=== PATIENT | female | born 1985 | race Native Hawaiian/Other Pacific Islander ===

== ENCOUNTER 2021-08-04 09:55 | Emergency (ER) | payer MEDICAID ==
[2021-08-04] MEDS ORDERED: ONDANSETRON 4 MG/2 ML INJ IV ONE ×2 (11:06→13:15)
[2021-08-04] MEDS ORDERED: SODIUM CHLORIDE 0.9% 1000 ML 1,000 ML IV ONE (11:06)
[2021-08-04] MEDS ORDERED: MORPHINE 2 MG/1 ML INJ IV ONE (11:07)
--- NOTE | 2021-08-04 11:33 | Emergency Department Report ---
ED Abdominal Pain HPI - General Chief Complaint: Abdominal Pain Stated Complaint: NOT FEELING WELL Time Seen by Provider: 08/04/21 10:59 Source: patient Mode of arrival: Ambulatory Limitations: No Limitations - History of Present Illness Initial Comments: 36-year-old female presents to the ER today with complaints of diffuse lower abdominal pain. Patient states that the pain started yesterday. She reports nausea, and she has been vomiting. She denies any diarrhea. He states that her last bowel movement was today and normal. She denies any UTI symptoms or any abnormal vaginal symptoms. She states that her last menstrual cycle was June 15, 2021. She did take one home test and it was negative. She is not currently on any control. She has not had any abdominal surgeries in the past. MD Complaint: abdominal pain -: days(s) (1) Severity scale (0 -10): 5 - Related Data Previous Rx's Medication Instructions Recorded Last Taken Type Ibuprofen [Motrin 600 MG tab] 600 mg PO Q8H PRN #30 tablet 07/23/16 Unknown Rx Multivitamin with Iron 1 each PO DAILY #30 tablet 07/23/16 Unknown Rx [Multivitamins with Iron] Ondansetron [Zofran Odt] 4 mg PO Q8HR PRN #15 tab.rapdis 08/04/21 Unknown Rx Vit-Fe Fumar-FA [ 1 tab PO QDAY #30 08/04/21 Unknown Rx Vitamin] Allergies Allergy/AdvReac Type Severity Reaction Status Date / Time No Known Allergies Allergy Verified 09/25/15 13:57 ED Review of Systems ROS: Stated complaint: NOT FEELING WELL Other details as noted in HPI Comment: All other systems reviewed and negative Constitutional: denies: chills, fever Eyes: denies: eye pain, eye discharge, vision change ENT: denies: ear pain, throat pain, dental pain, hearing loss, epistaxis, congestion Respiratory: denies: cough, shortness of breath, SOB with exertion, SOB at rest, wheezing Cardiovascular: denies: chest pain, palpitations, edema, syncope, paroxysmal nocturnal dyspnea Gastrointestinal: abdominal pain, nausea, vomiting. denies: diarrhea, constipation, hematemesis, melena, hematochezia Genitourinary: denies: urgency, dysuria, frequency, hematuria, discharge, abnormal menses, dyspareunia Musculoskeletal: denies: back pain, joint swelling, arthralgia, myalgia Skin: denies: rash, lesions, change in color, change in hair/nails, pruritus Neurological: denies: headache, weakness, numbness, paresthesias, confusion, abnormal gait, vertigo Psychiatric: denies: anxiety, depression, auditory hallucinations, visual hallucinations, homicidal thoughts, suicidal thoughts Hematological/Lymphatic: denies: easy bleeding, easy bruising, swollen glands ED Past Medical Hx - Past Medical History Hx Hypertension: No Hx Congestive Heart Failure: No Hx Diabetes: No Hx Deep Vein Thrombosis: No Hx Renal Disease: No Hx Sickle Cell Disease: No Hx Seizures: No Hx Asthma: Yes Hx COPD: No Hx HIV: No - Social History Smoking Status: Never Smoker - Medications Home Medications: Home Medications Medication Instructions Recorded Confirmed Last Taken Type Ibuprofen [Motrin 600 MG tab] 600 mg PO Q8H PRN #30 tablet 07/23/16 Unknown Rx Multivitamin with Iron 1 each PO DAILY #30 tablet 07/23/16 Unknown Rx [Multivitamins with Iron] Ondansetron [Zofran Odt] 4 mg PO Q8HR PRN #15 tab.rapdis 08/04/21 Unknown Rx Vit-Fe Fumar-FA [ 1 tab PO QDAY #30 08/04/21 Unknown Rx Vitamin] ED Physical Exam - General Limitations: No Limitations ED Course Vital Signs 08/04/21 08/04/21 10:07 10:16 Temperature 98.4 F 98.4 F Pulse Rate 71 79 Respiratory 18 17 Rate Blood Pressure 106/54 112/97 [Left] O2 Sat by Pulse 99 99 Oximetry ED Medical Decision Making - Lab Data Result diagrams: 08/04/21 11:34 08/04/21 12:59 - Radiology Data Radiology results: report reviewed Patient: DIANA RIVERA MR#: [id number] : 1985 Acct:[id number] Age/Sex: 36 / F ADM Date: 08/04/21 Loc: ED Attending Dr: Ordering Physician: ANNABEL MAK Date of Service: 08/04/21 Procedure(s): US OB transvaginal Accession Number(s): [id number] cc: ANNABEL MAK ULTRASOUND OBSTETRIC INDICATION / CLINICAL INFORMATION: +preg;[facility] 06/2021. Clinical Gestational Age (GA) in weeks, days: 7, 2 TECHNIQUE: Transvaginal. COMPARISON: None available. FINDINGS: GESTATIONAL SAC: Well-defined oval shape and intrauterine in location. YOLK SAC: No significant abnormality. EMBRYO/FETUS: No significant abnormality. - [place]-Rump Length = 0.4 cm = 6, 1 weeks, days - Heart Rate, beats per minute (if present) = 112 ADNEXA: No significant abnormality. FREE FLUID: None. ADDITIONAL FINDINGS: None. IMPRESSION: 1. Single, living intrauterine with estimated sonographic age of 6, 1 weeks, days. heart tones noted at 112 bpm Signer Name: Zack Hatch DO Signed: 08/04/2021 12:54 PM Workstation Name: [id number] Transcribed By: TAINA Dictated By: ZACK HATCH DO Electronically Authenticated By: ZACK HATCH DO Signed Date/Time: 08/04/21 1254 DD/ 1253 TD/TT: Patient: DIANA RIVERA MR#: [id number] : 1985 Acct:[id number] Age/Sex: 36 / F ADM Date: 08/04/21 Loc: ED Attending Dr: Ordering Physician: ANNABEL MAK Date of Service: 08/04/21 Procedure(s): US abdomen limited Accession Number(s): [id number] cc: ANNABEL MAK ULTRASOUND ABDOMEN, LIMITED (RIGHT UPPER QUADRANT) INDICATION / CLINICAL INFORMATION: RUQ abd pain. COMPARISON: None available. FINDINGS: PANCREAS: Visualized portion shows no significant abnormality. LIVER: No significant abnormality. The portal vein demonstrates normal hepatopedal flow. GALLBLADDER: Cholelithiasis. BILE DUCTS: No significant abnormality. Common bile duct measures 2 mm. FREE FLUID: None. ADDITIONAL FINDINGS: None. IMPRESSION: 1. Cholelithiasis without acute cholecystitis. Signer Name: Zack Hatch DO Signed: 08/04/2021 12:52 PM Workstation Name: [id number] Transcribed By: TAINA Dictated By: ZACK HATCH DO Electronically Authenticated By: ZACK HATCH DO Signed Date/Time: 08/04/21 1252 DD/ 1251 TD/TT: - Medical Decision Making Work-up reviewed, --patient was found to be . Remainder of the labs unremarkable. Her OB ultrasound shows that she is 6 weeks and 1 day single IUP with heart tones of 112, and her gallbladder ultrasound shows cholelithiasis without acute cholecystitis. Patient currently resting comfortably in recliner. She is not in any significant distress. She is not toxic or ill-appearing. No active vomiting during stay. Discussed all results with patient. Informed patient she will need to follow-up with [facility] to start care. She also be given referral information to general surgery for further evaluation of her gallstones but in the meantime gallbladder eating plan was discussed with patient. Her vital signs are stable. At this time there is no indication for any additional testing, admission or emergent specialist consult. Patient expressed understanding of all instructions and agree with plan. Patient stable at time of discharge. Critical care attestation.: If time is entered above; I have spent that time in minutes in the direct care of this critically ill patient, excluding procedure time. ED Disposition Clinical Impression: 6 weeks gestation of , Cholelithiasis Disposition: HOME / SELF CARE / HOMELESS Is pt being admited?: No Does the pt Need Aspirin: No Condition: Stable Instructions: Cholelithiasis, Gallbladder Eating Plan, Abdominal Pain During , Abdominal Pain (ED) Additional Instructions: Your OB ultrasound today shows that you are 6 weeks and 1 day . Your gallbladder ultrasound also shows that you have gallstones. You will need to follow-up with the general surgery for further evaluation and treatment of your gallstone. In the meantime you will need to adjust your diet and I recommend that you follow the gallbladder eating plan listed on your discharge instructions. I recommend following up with [facility] for care, in the meantime you can start [id number] vitamins and take Tylenol for pain as needed. Take the Zofran as prescribed to help with nausea and vomiting. Return to the ER if at any point your symptoms worsens in any way. Prescriptions: Vit-Fe Fumar-FA [ Vitamin] 1 tab PO QDAY #30 Ondansetron [Zofran Odt] 4 mg PO Q8HR PRN #15 tab.rapdis PRN Reason: Vomiting Referrals: MANUEL EM DO [Staff Physician] - 3-5 Days [facility] [Provider Group] - 3-5 Days [facility] [Provider Group] - 3-5 Days Forms: Work/School Release Form(ED) Time of Disposition: 14:12
[2021-08-04 11:51] LABS: Basophils # (Auto) 0.1 K/mm3 (0.0-0.1); Basophils % (Auto) 0.7 % (0.0-1.8); Eosinophils # (Auto) 0.1 K/mm3 (0.0-0.4); Eosinophils % (Auto) 1.9 % (0.0-4.3); Hematocrit 39.8 % (30.3-42.9); Lymphocytes # (Auto) 2.6 K/mm3 (1.2-5.4); Mean Corpuscular HGB Conc 33 % (30-34); Mean Corpuscular Volume 83 fl (79-97); Monocytes # (Auto) 0.5 K/mm3 (0.0-0.8); Monocytes % (Auto) 6.3 % (0.0-7.3); Platelet Count 375 K/mm3 (140-440); Red Blood Count 4.79 M/mm3 (3.65-5.03); Red Cell Distribution Width 13.8 % (13.2-15.2)
--- NOTE | 2021-08-04 12:57 | Ultrasound Report ---
ULTRASOUND ABDOMEN, LIMITED (RIGHT UPPER QUADRANT) INDICATION / CLINICAL INFORMATION: RUQ abd pain. COMPARISON: None available. FINDINGS: PANCREAS: Visualized portion shows no significant abnormality. LIVER: No significant abnormality. The portal vein demonstrates normal hepatopedal flow. GALLBLADDER: Cholelithiasis. BILE DUCTS: No significant abnormality. Common bile duct measures 2 mm. FREE FLUID: None. ADDITIONAL FINDINGS: None. IMPRESSION: 1. Cholelithiasis without acute cholecystitis. Signer Name: Zack Marte DO Signed: 08/04/2021 12:52 PM Workstation Name: [id number]
--- NOTE | 2021-08-04 12:58 | Ultrasound Report ---
ULTRASOUND OBSTETRIC INDICATION / CLINICAL INFORMATION: +preg;[facility] 06/2021. Clinical Gestational Age (GA) in weeks, days: 7, 2 TECHNIQUE: Transvaginal. COMPARISON: None available. FINDINGS: GESTATIONAL SAC: Well-defined oval shape and intrauterine in location. YOLK SAC: No significant abnormality. EMBRYO/FETUS: No significant abnormality. - [place]-Rump Length = 0.4 cm = 6, 1 weeks, days - Heart Rate, beats per minute (if present) = 112 ADNEXA: No significant abnormality. FREE FLUID: None. ADDITIONAL FINDINGS: None. IMPRESSION: 1. Single, living intrauterine with estimated sonographic age of 6, 1 weeks, days. h eart tones noted at 112 bpm Signer Name: Zack Marte DO Signed: 08/04/2021 12:54 PM Workstation Name: [email or web address]
[2021-08-04 13:37] LABS: Bilirubin,Urine NEG (Negative); Blood,Urine NEG (Negative); Color,Urine Yellow (Yellow); Mucus,Urine 1+ /HPF; Protein,Urine <15 mg/dL mg/dL (Negative); Urobilinogen,Urine < 2.0 mg/dL (<2.0)
[2021-08-04 13:48] LABS: Alanine Aminotransferase 26 units/L (7-56); Albumin 4.2 g/dL (3.9-5); Blood Urea Nitrogen 8 mg/dL (7-17); Calcium 9.4 mg/dL (8.4-10.2); Hemolysis Index 22
[2021-08-04 14:07] LABS: BUN/Creatinine Ratio 20
[2021-08-04 18:25] VITALS: BP 122/73
== END 2021-08-04 17:38 | disposition home or self-care (01) ==
LOC: ED 09:55
DX: O99.611 Diseases of the digestive system complicating pregnancy, first trimester (principal); K80.20 Calculus of gallbladder without cholecystitis without obstruction; Z3A.01 Less than 8 weeks gestation of pregnancy
CPT/HCPCS: 36415; 76705; 76817; 80053; 81001; 82962; 83690; 84702; 84703; 85025; 96361; 96374; 96375; 99284; J2270; J2405; J7030; Q0162

== ENCOUNTER 2021-09-02 17:06 | Emergency (ER) | payer SELFPAY ==
[2021-09-02] MEDS ORDERED: SODIUM CHLORIDE 0.9% 1000 ML 1,000 ML IV ONE (18:00)
[2021-09-02] MEDS ORDERED: FAMOTIDINE 20 MG TAB PO ONE (18:01)
--- NOTE | 2021-09-02 18:01 | Emergency Department Report ---
ED N/V/D HPI - General Chief complaint: Nausea/Vomiting/Diarrhea Stated complaint: VOMITING (11WKS PREG) Time Seen by Provider: 09/02/21 17:39 Source: patient Mode of arrival: Ambulatory Limitations: No Limitations - History of Present Illness Initial comments: 36-year-old female presents to the ER today with complaints of nausea and vomiting. She is currently at around 11 weeks. Patient states that she has been vomiting since last week but initially was just intermittent, but over the past 2 days the nausea and vomiting has gotten worse to the point where she cannot keep anything down. She states that today she noticed some blood-tinged emesis mother emesis has been mainly food, liquid and bilious. She reports burning pain in her substernal chest from the vomiting. She states that she felt generally weak and lightheaded today. She denies any SOB, abdominal pain or abnormal vaginal bleeding. She denies any UTI symptoms. She denies any fever or chills. She stated that she has nothing at home for vomiting though when she was seen here on August 04, 2021 she was prescribed Zofran. She states that she has not scheduled her first visit yet as she is still waiting on her Medicaid. She is Ab0. complaint: nausea, vomiting, other (11 weeks preg) -: week(s) (1) - Related Data Previous Rx's Medication Instructions Recorded Last Taken Type Ibuprofen [Motrin 600 MG tab] 600 mg PO Q8H PRN #30 tablet 07/23/16 Unknown Rx Multivitamin with Iron 1 each PO DAILY #30 tablet 07/23/16 Unknown Rx [Multivitamins with Iron] Vit-Fe Fumar-FA [ 1 tab PO QDAY #30 08/04/21 Unknown Rx Vitamin] Ondansetron [Zofran ODT TAB] 4 mg PO Q8HR PRN #15 tab.rapdis 09/02/21 Unknown Rx Promethazine [Phenergan] 25 mg TN Q6HR PRN #20 supp.rect 09/02/21 Unknown Rx Pyridoxine [Vitamin B-6 50MG TAB] 50 mg PO DAILY #30 tab 09/02/21 Unknown Rx Allergies Allergy/AdvReac Type Severity Reaction Status Date / Time No Known Allergies Allergy Verified 09/25/15 13:57 ED Review of Systems ROS: Stated complaint: VOMITING (11WKS PREG) Other details as noted in HPI Comment: All other systems reviewed and negative Constitutional: weakness ENT: denies: ear pain, throat pain Respiratory: denies: cough, shortness of breath, SOB with exertion, SOB at rest, wheezing Cardiovascular: other (+chest burning from vomiting) Endocrine: no symptoms reported Gastrointestinal: nausea, vomiting. denies: abdominal pain, diarrhea, constipation, hematemesis, melena, hematochezia Genitourinary: denies: urgency, dysuria, frequency, hematuria, discharge, abnormal menses, dyspareunia Musculoskeletal: denies: back pain, joint swelling, arthralgia Skin: denies: rash, lesions, change in color, change in hair/nails, pruritus Neurological: weakness, other (lightheaded). denies: headache, numbness, paresthesias, confusion Psychiatric: denies: anxiety, depression, auditory hallucinations, visual hallucinations, homicidal thoughts, suicidal thoughts Hematological/Lymphatic: denies: easy bleeding, easy bruising ED Past Medical Hx - Past Medical History Hx Hypertension: No Hx Congestive Heart Failure: No Hx Diabetes: No Hx Deep Vein Thrombosis: No Hx Renal Disease: No Hx Sickle Cell Disease: No Hx Seizures: No Hx Asthma: Yes Hx COPD: No Hx HIV: No - Social History Smoking Status: Never Smoker - Medications Home Medications: Home Medications Medication Instructions Recorded Confirmed Last Taken Type Ibuprofen [Motrin 600 MG tab] 600 mg PO Q8H PRN #30 tablet 07/23/16 Unknown Rx Multivitamin with Iron 1 each PO DAILY #30 tablet 07/23/16 Unknown Rx [Multivitamins with Iron] Vit-Fe Fumar-FA [ 1 tab PO QDAY #30 08/04/21 Unknown Rx Vitamin] Ondansetron [Zofran ODT TAB] 4 mg PO Q8HR PRN #15 tab.rapdis 09/02/21 Unknown Rx Promethazine [Phenergan] 25 mg TN Q6HR PRN #20 supp.rect 09/02/21 Unknown Rx Pyridoxine [Vitamin B-6 50MG TAB] 50 mg PO DAILY #30 tab 09/02/21 Unknown Rx ED Physical Exam - General Limitations: No Limitations General appearance: alert, in no apparent distress - Head Head exam: Present: atraumatic, normocephalic, normal inspection - Eye Eye exam: Present: normal appearance, PERRL, EOMI Pupils: Present: normal accommodation - Neck Neck exam: Present: normal inspection, full ROM. Absent: meningismus - Respiratory Respiratory exam: Present: normal lung sounds bilaterally. Absent: respiratory distress, wheezes, rales, rhonchi - Cardiovascular Cardiovascular Exam: Present: regular rate, normal rhythm, normal heart sounds - GI/Abdominal GI/Abdominal exam: Present: soft. Absent: distended, tenderness, guarding, rebound - Neurological Exam Neurological exam: Present: alert, oriented X3, CN II-XII intact, normal gait - Psychiatric Psychiatric exam: Present: normal affect, normal mood - Skin Skin exam: Present: intact ED Course Vital Signs 09/02/21 09/02/21 09/02/21 17:33 18:31 19:37 Temperature 98.7 F 97.9 F Pulse Rate 72 77 Respiratory 18 16 Rate Blood Pressure 122/77 127/77 [Right] O2 Sat by Pulse 99 99 99 Oximetry ED Medical Decision Making - Lab Data Result diagrams: 09/02/21 18:32 09/02/21 18:32 - Medical Decision Making 36-year-old female presents to the ER today with complaints of nausea and vom iting. She is currently at around 11 weeks. Patient states that she has been vomiting since last week but initially was just intermittent, but over the past 2 days the nausea and vomiting has gotten worse to the point where she cannot keep anything down. She states that today she noticed some blood-tinged emesis mother emesis has been mainly food, liquid and bilious. She reports burning pain in her substernal chest from the vomiting. She states that she felt generally weak and lightheaded today. She denies any SOB, abdominal pain or abnormal vaginal bleeding. She denies any UTI symptoms. She denies any fever or chills. She stated that she has nothing at home for vomiting though when she was seen here on August 04, 2021 she was prescribed Zofran. She states that she has not scheduled her first visit yet as she is still waiting on her Medicaid. She is Ab0. 2100: Labs reviewed and shows no acute abnormality. Patient reports feeling better after 1 L IV normal saline bolus, 1 L D5 normal saline IV, IV Zofran, Pepcid and vitamin B6. Patient was able to tolerate p.o. water. She is currently resting comfortably on the recliner. She is not toxic appearing. She is not ill-appearing. She denies any significant distress. She has no abdominal pain/pelvic pain or vaginal bleeding. She is currently neurologically intact and she is hemodynamically stable. I did question patient about the Zofran prescription that she was given on August 04 and she states that she took all of it does not have any left. Patient will be given a prescription for Zofran as well as Phenergan suppositories and vitamin B6. Patient encouraged to sip on fluids throughout the day, and also doing rigo products and small frequent meals throughout the day instead of large meals. Encourage patient to try and follow-up with [facility] as soon as she can to start care. She understands to return if her symptoms worsens. Patient was stable at time of discharge. Critical care attestation.: If time is entered above; I have spent that time in minutes in the direct care of this critically ill patient, excluding procedure time. ED Disposition Clinical Impression: Nausea and vomiting during Disposition: 01 HOME / SELF CARE / HOMELESS Is pt being admited?: No Does the pt Need Aspirin: No Condition: Stable Instructions: Morning Sickness, [id number] Additional Instructions: I recommend taking to zofran and the phenergan as prescribed to help with nausea/vomiting. Take the vitamin B6 as prescribed as this will also help with your nausea. Recommend sipping on water throughout the day. Also recommend rigo products as this will help control your nausea. Recommend that you do small frequent meals throughout the day instead of big meals. I recommend that you try to make an appointment with OB as soon as you can. Return to the ER if your symptoms changes or worsens in any way. Prescriptions: Promethazine [Phenergan] 25 mg TN Q6HR PRN #20 supp.rect PRN Reason: Vomiting Pyridoxine [Vitamin B-6 50MG TAB] 50 mg PO DAILY #30 tab Ondansetron [Zofran ODT TAB] 4 mg PO Q8HR PRN #15 tab.rapdis PRN Reason: Vomiting Referrals: PRIMARY [facility]ARE, [Primary Care Provider] - 3-5 Days [facility] [Provider Group] - 3-5 Days [facility] [Provider Group] - 3-5 Days [facility] [Provider Group] - 3-5 Days Time of Disposition: 20:48
[2021-09-02] MEDS: ONDANSETRON 4 MG/2 ML INJ IV ONE ×2 (18:20→19:46)
[2021-09-02] MEDS ORDERED: ONDANSETRON 4 MG/2 ML INJ IV ONE (19:35)
[2021-09-02 19:37] VITALS: BP 127/77
[2021-09-02] MEDS ORDERED: PYRIDOXINE 50 MG TAB PO STA (19:40)
[2021-09-02] MEDS ORDERED: D5W/0.9% NACL 1,000 ML IV ONE (19:45)
[2021-09-02 19:46] LABS: Basophils % (Auto) 0.4 % (0.0-1.8); Eosinophils # (Auto) 0.1 K/mm3 (0.0-0.4); Eosinophils % (Auto) 1.7 % (0.0-4.3); Hematocrit 38.8 % (30.3-42.9); Hemoglobin 12.7 gm/dl (10.1-14.3); Lymphocytes # (Auto) 2.2 K/mm3 (1.2-5.4); Lymphocytes % (Auto) 27.1 % (13.4-35.0); Mean Corpuscular HGB Conc 33 % (30-34); Mean Corpuscular Volume 84 fl (79-97); Monocytes # (Auto) 0.6 K/mm3 (0.0-0.8); Monocytes % (Auto) 7.4 % (0.0-7.3); Platelet Count 354 K/mm3 (140-440); Red Cell Distribution Width 14.4 % (13.2-15.2)
[2021-09-02 19:59] LABS: Alanine Aminotransferase 39 units/L (7-56); Blood Urea Nitrogen 5 mg/dL (7-17); Hemolysis Index 0
[2021-09-02] MEDS ORDERED: D5W/0.9% NACL 1,000 ML IV SCH (20:00)
[2021-09-02 20:01] LABS: Bacteria,Urine 1+ /HPF (Negative); Bilirubin,Urine NEG (Negative); Blood,Urine NEG (Negative); Color,Urine Yellow (Yellow); Protein,Urine <15 mg/dL mg/dL (Negative); Urobilinogen,Urine < 2.0 mg/dL (<2.0)
[2021-09-02 20:06] LABS: BUN/Creatinine Ratio 10
== END 2021-09-02 21:05 | disposition home or self-care (01) ==
LOC: ED 17:06
DX: O21.9 Vomiting of pregnancy, unspecified (principal); Z3A.11 11 weeks gestation of pregnancy; J45.909 Unspecified asthma, uncomplicated
CPT/HCPCS: 36415; 80053; 81001; 83690; 85025; 96361; 96374; 96375; 99283; J2405; J7030; J7042; J3490; Q0162

== ENCOUNTER 2021-09-23 15:16 | Emergency (ER) | payer MEDICAID ==
[2021-09-23] MEDS ORDERED: SODIUM CHLORIDE 0.9% 1000 ML 1,000 ML IV ONE (19:39)
[2021-09-23] MEDS ORDERED: diphenhydrAMINE 50 MG/ML VIAL IV STA (19:39)
[2021-09-23] MEDS ORDERED: METOCLOPRAMIDE 10 MG/2 ML INJ IV STA (19:39)
--- NOTE | 2021-09-23 19:40 | Emergency Department Report ---
ED General Adult HPI - General Chief complaint: Back Pain/Injury Stated complaint: HEADACHE/BACK PAIN/VOMTING Time Seen by Provider: 09/23/21 19:17 Source: patient Mode of arrival: Ambulatory Limitations: No Limitations - History of Present Illness Severity scale (0 -10): 9 - Related Data Previous Rx's Medication Instructions Recorded Last Taken Type Ibuprofen [Motrin 600 MG tab] 600 mg PO Q8H PRN #30 tablet 07/23/16 Unknown Rx Multivitamin with Iron 1 each PO DAILY #30 tablet 07/23/16 Unknown Rx [Multivitamins with Iron] Vit-Fe Fumar-FA [ 1 tab PO QDAY #30 08/04/21 Unknown Rx Vitamin] Ondansetron [Zofran ODT TAB] 4 mg PO Q8HR PRN #15 tab.rapdis 09/02/21 Unknown Rx Promethazine [Phenergan] 25 mg MT Q6HR PRN #20 supp.rect 09/02/21 Unknown Rx Pyridoxine [Vitamin B-6 50MG TAB] 50 mg PO DAILY #30 tab 09/02/21 Unknown Rx Allergies Allergy/AdvReac Type Severity Reaction Status Date / Time No Known Allergies Allergy Verified 09/25/15 13:57 ED Review of Systems ROS: Stated complaint: HEADACHE/BACK PAIN/VOMTING Other details as noted in HPI Comment: All other systems reviewed and negative ED Past Medical Hx - Past Medical History Hx Hypertension: No Hx Congestive Heart Failure: No Hx Diabetes: No Hx Deep Vein Thrombosis: No Hx Renal Disease: No Hx Sickle Cell Disease: No Hx Seizures: No Hx Asthma: Yes Hx COPD: No Hx HIV: No - Social History Smoking Status: Never Smoker - Medications Home Medications: Home Medications Medication Instructions Recorded Confirmed Last Taken Type Ibuprofen [Motrin 600 MG tab] 600 mg PO Q8H PRN #30 tablet 07/23/16 Unknown Rx Multivitamin with Iron 1 each PO DAILY #30 tablet 07/23/16 Unknown Rx [Multivitamins with Iron] Vit-Fe Fumar-FA [ 1 tab PO QDAY #30 08/04/21 Unknown Rx Vitamin] Ondansetron [Zofran ODT TAB] 4 mg PO Q8HR PRN #15 tab.rapdis 09/02/21 Unknown Rx Promethazine [Phenergan] 25 mg MT Q6HR PRN #20 supp.rect 09/02/21 Unknown Rx Pyridoxine [Vitamin B-6 50MG TAB] 50 mg PO DAILY #30 tab 09/02/21 Unknown Rx ED Physical Exam - General Limitations: No Limitations General appearance: alert, in no apparent distress - Head Head exam: Present: atraumatic, normocephalic - Eye Eye exam: Present: normal appearance, PERRL, EOMI Pupils: Present: normal accommodation - ENT ENT exam: Present: normal exam, normal orophraynx, mucous membranes moist, TM's normal bilaterally - Neck Neck exam: Present: normal inspection, full ROM - Respiratory Respiratory exam: Present: normal lung sounds bilaterally. Absent: respiratory distress, wheezes, rales, chest wall tenderness - Cardiovascular Cardiovascular Exam: Present: regular rate, normal rhythm. Absent: systolic murmur, diastolic murmur, rubs, gallop - GI/Abdominal GI/Abdominal exam: Present: soft, normal bowel sounds - Extremities Exam Extremities exam: Present: normal inspection, full ROM, normal capillary refill - Back Exam Back exam: Present: normal inspection. Absent: CVA tenderness (R), CVA tenderness (L) - Neurological Exam Neurological exam: Present: alert, oriented X3, CN II-XII intact, normal gait - Psychiatric Psychiatric exam: Present: normal affect, normal mood. Absent: anxious, flat affect, manic - Skin Skin exam: Present: warm, dry, intact, normal color. Absent: rash ED Course Vital Signs 09/23/21 17:03 Temperature 98.2 F Pulse Rate 89 Respiratory 18 Rate Blood Pressure 145/80 [Right] O2 Sat by Pulse 100 Oximetry Critical care attestation.: If time is entered above; I have spent that time in minutes in the direct care of this critically ill patient, excluding procedure time. ED Disposition Condition: Stable Referrals: [facility],MD [Primary Care Provider] - 3-5 Days
[2021-09-23 20:35] LABS: Basophils % (Auto) 0.4 % (0.0-1.8); Eosinophils # (Auto) 0.2 K/mm3 (0.0-0.4); Eosinophils % (Auto) 1.7 % (0.0-4.3); Hematocrit 39.5 % (30.3-42.9); Lymphocytes # (Auto) 2.9 K/mm3 (1.2-5.4); Lymphocytes % (Auto) 30.1 % (13.4-35.0); Mean Corpuscular HGB Conc 33 % (30-34); Mean Corpuscular Volume 84 fl (79-97); Monocytes # (Auto) 0.6 K/mm3 (0.0-0.8); Platelet Count 351 K/mm3 (140-440)
[2021-09-23 20:43] LABS: Blood Urea Nitrogen 4 mg/dL (7-17); Calcium 9.2 mg/dL (8.4-10.2); Hemolysis Index 11
[2021-09-23 20:44] LABS: BUN/Creatinine Ratio 10
[2021-09-23 22:32] VITALS: BP 122/67
== END 2021-09-23 22:23 | disposition home or self-care (01) ==
LOC: ED 15:16
DX: R51.9 Headache, unspecified (principal); M54.9 Dorsalgia, unspecified; R11.10 Vomiting, unspecified; J45.909 Unspecified asthma, uncomplicated
CPT/HCPCS: 36415; 80048; 84702; 85025; 96361; 96374; 96375; 99283; J1200; J2765; J7030; Q0162

== ENCOUNTER 2022-03-09 23:41 | Outpatient (CLI) | payer MEDICAID ==
--- NOTE | 2022-03-10 03:46 | Ultrasound Report ---
ULTRASOUND OBSTETRIC LIMITED INDICATION / CLINICAL INFORMATION: EFW [place]. Clinical Gestational Age (GA) in weeks, days: 38 weeks 3 days TECHNIQUE: Transabdominal. COMPARISON: 08/04/2021 FINDINGS: Single live intrauterine . measurements correspond to a gestational age of 3 5 weeks and 6 days with estimated weight of 2908 g. HEART RATE (beats per minute): 137 AMNIOTIC FLUID INDEX (cm) = 8.3 (normal = 7-24 cm) PRESENTATION: Cephalic. ADDITIONAL FINDINGS: None. IMPRESSION: 1. Single live intrauterine with ultrasound age of 35 weeks and 6 days. Estimated nasim ght of 2908 g. 2. Amniotic fluid index is within normal limits, measuring 8.3 cm. Signer Name: Curt Lino MD Signed: 03/10/2022 3:42 AM Workstation Name: [id number]
== END 2022-03-10 03:03 | disposition home or self-care (01) ==
LOC: TRG 23:41 → APU 03-10 00:16 → TRG 03-10 03:03
PROVIDERS: ATTEND Obstetrics & Gynecology
DX: Z34.93 Encounter for supervision of normal pregnancy, unspecified, third trimester (principal); Z3A.37 37 weeks gestation of pregnancy
CPT/HCPCS: 59025; 76816

== ENCOUNTER 2022-03-10 10:08 | Outpatient (CLI) | payer MEDICAID ==
[2022-03-10 10:38] VITALS: BP 106/64
== END 2022-03-10 13:10 | disposition home or self-care (01) ==
LOC: TRG 10:08 → APU 10:09 → TRG 13:10
PROVIDERS: ATTEND Obstetrics & Gynecology
DX: Z12.31 Encounter for screening mammogram for malignant neoplasm of breast (principal)
CPT/HCPCS: 59025

== ENCOUNTER 2022-03-12 17:58 | Inpatient (IN) | payer MEDICAID ==
[2022-03-12] MEDS ORDERED: OXYTOCIN 10 UNIT/1 ML INJ IM PRN (18:26)
[2022-03-12] MEDS ORDERED: LIDOCAINE (2%) 20 MG/1 ML VIAL 20 ML MDV INFILTRATI ONE (18:26)
[2022-03-12] MEDS ORDERED: METHYLERGONOVINE MALEATE 0.2 MG/ML VIAL IM PRN (18:26)
[2022-03-12] MEDS ORDERED: CARBOPROST TROMETHAMINE 250 MCG/1 ML INJ IM PRN (18:26)
[2022-03-12] MEDS ORDERED: ePHEDrine SULFATE 50 MG/1 ML INJ IV PRN (18:26)
[2022-03-12] MEDS ORDERED: miSOPROStol 200 MCG TAB PR PRN (18:26)
[2022-03-12] MEDS ORDERED: PENICILLIN G POTASSIUM 5 MIL.UNITS in SODIUM CHLORIDE 0.9% 50 ML IV ONE (18:26)
[2022-03-12] MEDS ORDERED: ACETAMINOPHEN 325 MG TAB PO PRN (18:26)
[2022-03-12] MEDS ORDERED: NalbUPHINE 10 MG/1 ML INJ IV PRN (18:26)
[2022-03-12] MEDS ORDERED: MINERAL OIL 30 ML ORAL LIQD PO PRN (18:26)
[2022-03-12] MEDS ORDERED: NALOXONE 0.4 MG/1 ML INJ IV PRN (18:26)
[2022-03-12] MEDS ORDERED: ONDANSETRON 4 MG/2 ML INJ IV PRN (18:26)
[2022-03-12] MEDS ORDERED: PROMETHAZINE 25 MG TAB PO PRN (18:26)
[2022-03-12] MEDS ORDERED: fentaNYL 100 MCG/2 ML INJ IV PRN (18:26)
[2022-03-12] MEDS ORDERED: LOPERAMIDE 2 MG CAP PO PRN (18:26)
[2022-03-12] MEDS ORDERED: TERBUTALINE 1 MG/1 ML INJ SUB-Q PRN (18:26)
[2022-03-12] MEDS ORDERED: LACTATED RINGERS 1,000 ML IV SCH (18:30)
[2022-03-12] MEDS ORDERED: ALBUTEROL 2.5 MG/3 ML NEBU IH PRN (18:31)
--- NOTE | 2022-03-12 18:37 | History and Physical Report ---
History of Present Illness Date of examination: 03/12/22 Chief complaint: sent from [facility] with oligohydramnios at term for delivery History of present illness: at 37.0wks by LMP c/w [facility]. care at [facility]. Pt was seen at [facility] today and sent with BPP 01/06 amd VENECIA 5.7cm. Pt admits to movement, denies Headache, LOF, vag bleed. Pt admits to feeling ctx and states she had baby stuck last delivery and the wt was 8lbs. Past History Past Medical History: asthma, other (obesity) Past Surgical History: no surgical history Social history: no significant social history - Obstetrical History Expected Date of Delivery: 04/02/22 Actual Gestation: 37 Week(s) 0 Day(s) : 5 Hx # Term Pregnancies: 4 Number of Living Children: 4 Medications and Allergies Allergies Allergy/AdvReac Type Severity Reaction Status Date / Time No Known Allergies Allergy Verified 03/12/22 20:34 Home Medications Medication Instructions Recorded Confirmed Last Taken Type Ibuprofen [Motrin 600 MG tab] 600 mg PO Q8H PRN #30 tablet 07/23/16 Unknown Rx Multivitamin with Iron 1 each PO DAILY #30 tablet 07/23/16 Unknown Rx [Multivitamins with Iron] Vit-Fe Fumar-FA [ 1 tab PO QDAY #30 08/04/21 Unknown Rx Vitamin] Ondansetron [Zofran ODT TAB] 4 mg PO Q8HR PRN #15 tab.rapdis 09/02/21 Unknown Rx Promethazine [Phenergan] 25 mg MD Q6HR PRN #20 supp.rect 09/02/21 Unknown Rx Pyridoxine [Vitamin B-6 50MG TAB] 50 mg PO DAILY #30 tab 09/02/21 Unknown Rx Doxylamine Succinate/Vit B6 1 each PO BID #20 09/23/21 Unknown Rx [Joe Rodas 10-10 mg Tablet] Active Meds: Active Medications Acetaminophen (Acetaminophen 325 Mg Tab) 650 mg PO Q4H PRN PRN Reason: Pain, Mild (1-3) Albuterol (Albuterol 2.5 Mg/3 Ml Nebu) 2.5 mg IH Q4HRT PRN PRN Reason: Wheezing Carboprost Tromethamine (Carboprost Tromethamine 250 Mcg/1 Ml Inj) 250 mcg IM ONCE PRN PRN Reason: Uterine Bleeding Ephedrine Sulfate (Ephedrine Sulfate 50 Mg/1 Ml Inj) 10 mg IV Q2M PRN PRN Reason: Hypotension Fentanyl (Fentanyl 100 Mcg/2 Ml Inj) 100 mcg IV Q2H PRN PRN Reason: Pain,Severe (7-10) LABOR PAIN Oxytocin/Sodium Chloride (Pitocin/Ns 30 Unit/500ml) 30 units in 500 mls @ 2 mls/hr IV TITR SRINIVAS; Protocol Lactated Ringer's (Lactated Ringers) 1,000 mls @ 125 mls/hr IV DIRECT SRINIVAS Oxytocin/Sodium Chloride (Pitocin/Ns 30 Unit/500ml) 30 units in 500 mls @ 40 mls/hr IV TITR SRINIVAS; Protocol Penicillin G Potassium 5 mil. (units/ Sodium Chloride) 50 mls @ 100 mls/hr IV ONCE ONE; Protocol Stop: 03/12/22 18:55 Lidocaine (Lidocaine (2%) 20 Mg/1 Ml Vial 20 Ml Mdv) 20 ml INFILTRATI ONCE ONE Stop: 03/12/22 18:27 Loperamide HCl (Loperamide 2 Mg Cap) 2 mg PO ONCE PRN PRN Reason: give with Hemabate Methylergonovine Maleate (Methylergonovine Maleate 0.2 Mg/Ml Vial) 0.2 mg IM ONCE PRN PRN Reason: Uterine Bleeding Mineral Oil (Mineral Oil 30 Ml Oral Liqd) 30 ml PO QHS PRN PRN Reason: Constipation Misoprostol (Misoprostol 200 Mcg Tab) 800 mcg MD ONCE PRN PRN Reason: Uterine Bleeding Nalbuphine HCl (Nalbuphine 10 Mg/1 Ml Inj) 10 mg IV Q2H PRN PRN Reason: Pain, Moderate (4-6) Naloxone HCl (Naloxone 0.4 Mg/1 Ml Inj) 0.1 mg IV Q2MIN PRN PRN Reason: Res Rate </= 8 or 02 SAT < 92% Ondansetron HCl (Ondansetron 4 Mg/2 Ml Inj) 4 mg IV Q8H PRN PRN Reason: Nausea And Vomiting Oxytocin (Oxytocin 10 Unit/1 Ml Inj) 10 unit IM ONCE PRN PRN Reason: Uterine Bleeding Promethazine HCl (Promethazine 25 Mg Tab) 25 mg PO Q6H PRN PRN Reason: Nausea And Vomiting Terbutaline Sulfate (Terbutaline 1 Mg/1 Ml Inj) 0.25 mg SUB-Q ONCE PRN PRN Reason: Hyperstimulation/Hypertonicity Review of Systems All systems: negative (no complaints) - Physical Exam Breasts: Positive: deferred Cardiovascular: Regular rate Lungs: Positive: Normal air movement Abdomen: Positive: soft Genitourinary (Female): Positive: other (left labia with small bartholin's cyst) Vagina: Positive: normal moisture Uterus: Positive: enlarged (non-tender, gravid) Deep Tendon Reflex Grade: Normal +2 - Obstetrical FHR: category 1 Uterine Contraction Monitor Mode: External Cervical Dilatation: 3 Cervical Effacement Percentage: 70 station: -2 Uterine Contraction Pattern: Irregular Results All other labs normal. Assessment and Plan Term grand multiparous pt with oligo, BPP 6/8; H/O asthma with last attack in december 2021; H/O shoulder dystocia 1. Admit for delivery sent by [facility] and records to be taken to hospital by [facility] [employer]; charge nurse notified 2. Augment with pitocin 3. May have IV or epidural when desired 4. 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
[2022-03-12] MEDS ORDERED: OXYTOCIN DRIP 30 UNITS/500 ML BAG IV SCH ×2 (19:00)
[2022-03-12 21:58] LABS: Hematocrit 31.9 % (30.3-42.9); Hemoglobin 10.6 gm/dl (10.1-14.3); Mean Corpuscular HGB Conc 33 % (30-34); Mean Corpuscular Volume 79 fl (79-97); Platelet Count 294 K/mm3 (140-440); Red Blood Count 4.02 M/mm3 (3.65-5.03); Red Cell Distribution Width 15.5 % (13.2-15.2)
--- NOTE | 2022-03-12 22:19 | Event Note ---
Date: 03/12/22 S: Feeling contractions O: Pit at 4mu, contractions every 3-4 min, CAT I tracing A: Induction of labor for oligohydramnious P: Expect
--- NOTE | 2022-03-13 02:34 | Procedure Note ---
OB Delivery Note - Delivery Date of Delivery: 03/13/22 Surgeon: LORI LIM Estimated blood loss: 200cc - Vaginal Delivery presentation: vertex Delivery position: OA Intrapartum events: none Delivery induction: oxytocin Delivery augmentation: rupture of membranes Delivery monitor: external FHT, external uterine Route of delivery: Delivery placenta: spontaneous Delivery cord: 3 umbilical vessels Episiotomy: none Delivery laceration: none Anesthesia: none, epidural Delivery comments: of a viable female 6#11oz over intact perineum on 03/13/22 @ 0217. Placenta delivered 3 VCI. QBL 200cc. - Infant A at 1 minute: 8 at 5 minutes: 9 Gender: Female (6#11oz)
[2022-03-13] MEDS ORDERED: diphenhydrAMINE 25 MG CAP PO PRN (02:35)
[2022-03-13] MEDS ORDERED: LANOLIN/ZINC/DIMETHICONE (LANSINOH) 7 GM TP PRN (02:35)
[2022-03-13] MEDS ORDERED: WITCH HAZEL/ GLYCERIN PAD TP PRN (02:35)
[2022-03-13] MEDS ORDERED: ACETAMINOPHEN 325 MG TAB PO PRN (02:35)
[2022-03-13] MEDS: oxyCODONE /ACETAMINOPHEN 5-325MG TAB PO PRN ×2 (03:02→12:07)
[2022-03-13] MEDS: IBUPROFEN 800 MG TAB PO SCH ×4 (05:09→23:54)
[2022-03-13 17:18] LABS: Hematocrit 31.3 % (30.3-42.9); Hemoglobin 10.2 gm/dl (10.1-14.3)
[2022-03-14] MEDS: IBUPROFEN 800 MG TAB PO SCH (06:00)
--- NOTE | 2022-03-14 07:11 | Progress Note ---
Assessment and Plan A: PPD # 1 - stable P: Discharge home today Discharge instructions given Subjective - Subjective Date of service: 03/14/22 Principal diagnosis: PPD # 1 - stable Patient reports: appetite normal : doing well Objective - Vital Signs Latest vital signs: Vital Signs Temp Pulse Resp BP Pulse Ox Pulse Ox 03/14/22 00:29 98.1 F 66 18 104/71 100 03/13/22 21:07 64 108/79 100 03/13/22 20:30 100 03/13/22 20:12 97.9 F 64 18 88/44 100 03/13/22 17:22 98.2 F 65 18 97/55 100 03/13/22 12:50 98.0 F 79 18 105/52 97 03/13/22 08:30 99 03/13/22 07:48 98.0 F 70 18 108/69 99 Intake and Output 03/13/22 03/14/22 03/14/22 22:59 06:59 14:59 Intake Total 1210 Balance 1210 Intake: Oral 610 Intake, Free Water 600 Other: Total, Intake Amount 250 # Voids Void 2 - Exam Breasts: Present: deferred Cardiovascular: Present: Regular rate Lungs: Present: Clear to auscultation Abdomen: Present: soft Vulva: both: normal Uterus: Present: fundal height below umbilicus Extremities: Present: normal Deep Tendon Reflex Grade: Normal +2
--- NOTE | 2022-03-14 07:12 | Discharge Summary ---
Providers - Providers Date of Admission: 03/13/22 02:35 Date of discharge: 03/14/22 Attending physician: SANTO MOSLEY Primary care physician: SANTO MOSLEY Hospitalization Reason for admission: induction of labor Delivery: Episiotomy: none Laceration: none complications: none Discharge diagnosis: IUP at term delivered baby: female Condition at discharge: Good Disposition: 01 HOME / SELF CARE / HOMELESS Plan - Provider Discharge Summary Activity: routine, no sex for 6 weeks, no strenuous exercise Diet: routine Instructions: routine Additional instructions: [] Smoking cessation referral if applicable(refer to patient education folder for contact #) [] Refer to [facility] Booklet Call your doctor immediately for: * Fever > 100.5 * Heavy vaginal bleeding ( >1 pad per hour) * Severe persistent headache * Shortness of breath * Reddened, hot, painful area to leg or breast * Drainage or odor from incision. * Keep incision clean and dry at all times and follow doctor's instructions regarding bathing/showering - Follow up plan Follow up: SNATO MOSLEY MD [Primary Care Provider] - 6 Weeks
[2022-03-14 09:55] VITALS: BP 109/64
== END 2022-03-14 10:30 | disposition home or self-care (01) | DRG 775 ==
LOC: TRG 17:58 → LD 17:59 → TRG 03-13 02:35 → OB 03-13 05:02
PROVIDERS: ADMIT Obstetrics & Gynecology; ATTEND Obstetrics & Gynecology
PROC: 10E0XZZ Delivery of Products of Conception, External Approach (ICD-10-PCS; principal; 2022-03-13)
PROC: 10907ZC Drainage of Amniotic Fluid, Therapeutic from Products of Conception, Via Natural or Artificial Opening (ICD-10-PCS; 2022-03-13)
PROC: 3E033VJ Introduction of Other Hormone into Peripheral Vein, Percutaneous Approach (ICD-10-PCS; 2022-03-13)
PROC: 3E0R3BZ Introduction of Anesthetic Agent into Spinal Canal, Percutaneous Approach (ICD-10-PCS; 2022-03-13)
PROC: 00HU33Z Insertion of Infusion Device into Spinal Canal, Percutaneous Approach (ICD-10-PCS; 2022-03-13)
DX: O41.03X0 Oligohydramnios, third trimester, not applicable or unspecified (principal); Z20.822 Contact with and (suspected) exposure to COVID-19; Z3A.37 37 weeks gestation of pregnancy; Z37.0 Single live birth; O99.52 Diseases of the respiratory system complicating childbirth; J45.909 Unspecified asthma, uncomplicated
CPT/HCPCS: 36415; 85014; 85018; 85027; 86592; 86850; 86900; 86901; G0378; J2300; J2590; J7120; U0003